=== PATIENT | female | born 1960 | race Native Hawaiian/Other Pacific Islander ===

== ENCOUNTER 2018-12-04 08:35 | Day surgery (SDC) | payer BC ==
[2018-12-03 12:09] VITALS: BMI 21.4
[~2018-12-04 08:35] MED LIST: Lactated Ringer's 500 ML IV SCH
[2018-12-04] MEDS ORDERED: Propofol 10 mg/ml Inj (20 ML) ONE (09:14)
--- NOTE | 2018-12-04 09:55 | CP.SDSHP ---
Same Day Surgery H & P - History Proposed Procedure: EGD/ COLONSCOPY Pre-Op Diagnosis: SEE NOTES - Previous Medical/Surgical History Cardiac: Hypertension Endocrine/Metabolic: Thyroid Disease Misc: Other Pain: 4.Moderate Pain - Allergies Allergies: Allergies tramadol Allergy (Verified 12/03/18 12:09) ITCHING - Physical Exam General Appearance: N Vital Signs: Vital Signs 12/04/18 12/04/18 08:58 09:49 Temperature 97 F L 97 F L Pulse Rate 80 69 Respiratory 20 20 Rate Blood Pressure 109/70 106/64 O2 Sat by Pulse 100 100 Oximetry Mental Status: Alert & Oriented x3 Neuro: WNL Heart: Other Lungs: WNL GI: Other - {Optional Preform as Required} Breast: WNL Abdomen: Other Rectal: Other Integument: WNL : WNL Ortho: WNL ENT: WNL - Impression Pt. Evaluated Today:Candidate for Anesthesia & Procedure: Yes - Date & Time Time: 09:55 Short Stay Discharge - Short Stay Discharge Admitting Diagnosis/Reason for Visit: FUNCTIONAL DYSPEPSIA Disposition: HOME/ ROUTINE
[2018-12-04] MEDS ORDERED: Glucagon Recombinant 1 mg Inj ONE (10:17)
[2018-12-04] MEDS ORDERED: ePHEDrine 50 mg/ml Inj ONE (10:22)
[2018-12-04 10:37] VITALS: TEMP 97.5
[2018-12-04 10:38] VITALS: O2SAT 100
[2018-12-04] MEDS ORDERED: Belladonna-Phenobarbital PO ONE (10:50)
[2018-12-04 11:04] VITALS: RESP 12
[2018-12-04 11:18] VITALS: BP 113/65; PULSE 70
== END 2018-12-04 11:17 | disposition home or self-care (01) ==
LOC: C.ENDO 08:35
PROVIDERS: ATTEND Specialist
DX: K30 Functional dyspepsia (principal); K64.8 Other hemorrhoids; K57.10 Diverticulosis of small intestine without perforation or abscess without bleeding; K58.9 Irritable bowel syndrome, unspecified; K44.9 Diaphragmatic hernia without obstruction or gangrene
CPT/HCPCS: 43239; 45380; 88305; 88313; 88342; J1610; J2001; J2704; J3010; J7120